=== PATIENT | female | born 1935 | race Caucasian/White ===

== ENCOUNTER 2018-07-06 07:56 | Outpatient (CLI) | payer MEDICARE, OTHER ==
[~2018-07-06] VITALS: Ht 167.6 cm; Wt 79.0 kg
[2018-07-06] VITALS (7 sets, daily range): BP systolic 134–181; BP diastolic 58–76
[~2018-07-06 07:56] MED LIST: ASPI81TA52 PO; LISI-222 PO; MULT-342 PO
[2018-07-06] MEDS ORDERED: regadenoson 0.4mg/5ml syringe IV PRN (08:50)
[2018-07-06] MEDS ORDERED: nitroGLYCERIN 0.4mg SUBLingual tab SL PRN (08:50)
[2018-07-06] MEDS ORDERED: aminophylline 250mg/10ml inj. IV PRN (08:50)
[2018-07-06] MEDS ORDERED: aminophylline inj. 0 ML IV ONE (09:40)
[2018-07-06] MEDS ORDERED: regadenoson 0.4mg/5ml syringe IV ONE (09:40)
== END 2018-07-06 23:59 | disposition home or self-care (01) ==
LOC: RAD 07:56
PROVIDERS: ATTEND Internal Medicine Cardiovascular Disease
DX: Z01.810 Encounter for preprocedural cardiovascular examination (principal); I10 Essential (primary) hypertension; Z95.1 Presence of aortocoronary bypass graft; Z85.828 Personal history of other malignant neoplasm of skin; Z79.82 Long term (current) use of aspirin
CPT/HCPCS: 78452; 93017; A9500; J0280

== ENCOUNTER 2018-10-06 05:49 | Emergency (ER) | payer OTHER ==
[~2018-10-06] VITALS: Ht 167.6 cm; Wt 77.0 kg
[2018-10-06 07:14] LABS: CLARITY,URINE CLEAR (Clear); COLOR,URINE YELLOW (Yellow); GLUCOSE, URINE NEGATIVE (Neg); KETONES,URINE 40 mg/dl (Neg); LEUKOCYTE ESTERASE ,URINE LARGE (Neg); NITRITES, URINE NEGATIVE (Neg); OCCULT BLOOD,URINE MODERATE (Neg); PROTEIN,URINE TRACE mg/dl (Neg); UROBILINOGEN,URINE 0.2 E.U/dL (0.2-1.0)
[2018-10-06 07:15] LABS: UA COLLECTION TYPE CLN CATCH MIDSTREAM
[2018-10-06 07:22] LABS: SQUAMOUS EPITHELIAL CELL,UR MODERATE /LPF (FEW)
[2018-10-06 07:23] LABS: BACTERIA,URINE 2+ /HPF (Neg); RBC,URINE 50-100 /HPF (0-2); WBC,URINE TNTC /HPF (0-4)
[2018-10-06 07:38] LABS: HEMATOCRIT 42.5 % (35.0-45.0); HEMOGLOBIN 14.3 g/dl (12.0-16.0); MEAN CORPUSCULAR HEMOGLOBIN 31.7 PG (27.0-31.0); MEAN CORPUSCULAR HGB CONC 33.7 % (33.0-36.5); MEAN CORPUSCULAR VOLUME 94.3 FL (78-98); PLATELET COUNT 357 X10'3 (140-440); RED BLOOD COUNT 4.51 X10'6 (4.20-5.60); RED CELL DISTRIBUTION WIDTH 13.9 % (11.5-14.5)
[2018-10-06 07:39] LABS: BASOPHILS % (AUTO) 0.6 % (0-1); EOSINOPHILS # (AUTO) 0.1 X10'3 (0-0.9); EOSINOPHILS % (AUTO) 1.2 % (0-6); LYMPHOCYTES # (AUTO) 1.4 X10'3 (1.1-4.8); LYMPHOCYTES % (AUTO) 19.8 % (21-51); MONOCYTES # (AUTO) 0.6 X10'3 (0-0.9); MONOCYTES % (AUTO) 8.4 % (2-12); NEUTROPHILS # (AUTO) 4.9 X10'3 (1.8-7.7)
[2018-10-06 07:49] LABS: ALANINE AMINOTRANSFERASE 17 U/L (12-78); ALBUMIN 3.6 G/DL (3.4-5.0); ALBUMIN/GLOBULIN RATIO 0.9 (1.1-1.5); ALKALINE PHOSPHATASE 64 IU/L (46-116); ANION GAP 11 (8-16); ASPARTATE AMINO TRANSFERASE 29 U/L (10-37); BILIRUBIN,TOTAL 0.5 MG/DL (0.1-1.0); BLOOD UREA NITROGEN 22 MG/DL (7-18); BUN/CREATININE RATIO 27.8 (6.6-38.0); CALCIUM 8.9 MG/DL (8.5-10.1); CHLORIDE 103 MMOL/L (99-107); CREATININE 0.79 MG/DL (0.40-0.90); GLUCOSE 100 MG/DL (70-104); LIPASE 226 U/L (73-393); MAGNESIUM 1.9 MG/DL (1.5-2.4); POTASSIUM 3.5 MMOL/L (3.5-5.1); SODIUM 141 MMOL/L (135-145); TOTAL CARBON DIOXIDE 26.9 MMOL/L (24-32); TOTAL PROTEIN 7.5 G/DL (6.4-8.2); eGFR 70 ML/MIN
[2018-10-06 07:55] LABS: PARTIAL THROMBOPLASTIN TIME 28 SECONDS (22-32); PROTHROMBIN TIME 10.3 SECONDS (9.0-12.0)
[2018-10-06] MEDS ORDERED: meclizine 12.5mg tablet PO ONE (08:05)
[2018-10-06] MEDS ORDERED: MECL12.584 PO (08:15)
[2018-10-06] MEDS ORDERED: CEPH250T PO (08:15)
[2018-10-06 08:29] VITALS: BP 179/98
== END 2018-10-06 08:40 | disposition home or self-care (01) ==
LOC: ER 05:49
DX: R42 Dizziness and giddiness (principal); C55 Malignant neoplasm of uterus, part unspecified; Z88.8 Allergy status to other drugs, medicaments and biological substances; Z79.82 Long term (current) use of aspirin; Z79.899 Other long term (current) drug therapy
CPT/HCPCS: 36415; 70450; 80053; 81001; 83690; 83735; 84484; 85025; 85610; 85730; 87088; 93005; 99284; J8597

== ENCOUNTER 2018-12-12 06:34 | Day surgery (SDC) | payer OTHER ==
[~2018-12-12] VITALS: Ht 167.6 cm; Wt 70.7 kg
[~2018-12-12 06:34] MED LIST changes: +MECL12.584 PO
[2018-12-12 07:03] VITALS: BP 150/90
[2018-12-12] MEDS ORDERED: normal saline 1000ml 1,000 ML IV SCH (07:05)
[2018-12-12] MEDS ORDERED: LOSA25TA96 PO (07:17)
[2018-12-12] MEDS ORDERED: IBUP-1984 PO (07:17)
[2018-12-12] MEDS ORDERED: PROM25TA14 PO (07:17)
[2018-12-12 08:02] LABS: BASOPHILS % (AUTO) 0.3 % (0-1); EOSINOPHILS # (AUTO) 0.1 X10'3 (0-0.9); EOSINOPHILS % (AUTO) 0.8 % (0-6); HEMATOCRIT 37.5 % (35.0-45.0); HEMOGLOBIN 12.7 g/dl (12.0-16.0); LYMPHOCYTES % (AUTO) 8.5 % (21-51); MEAN CORPUSCULAR HEMOGLOBIN 32.1 PG (27.0-31.0); MEAN CORPUSCULAR HGB CONC 33.9 g/dL (33.0-36.5); MEAN CORPUSCULAR VOLUME 94.7 FL (78-98); MEAN PLATELET VOLUME 8.6 FL (7.4-10.4); MONOCYTES # (AUTO) 0.2 X10'3 (0-0.9); MONOCYTES % (AUTO) 1.5 % (2-12); NEUTROPHILS # (AUTO) 10.7 X10'3 (1.8-7.7); NEUTROPHILS % (AUTO) 88.9 % (42-75); PLATELET COUNT 172 X10'3 (140-440); RED BLOOD COUNT 3.96 X10'6 (4.20-5.60)
[2018-12-12 08:13] LABS: ALBUMIN 3.6 G/DL (3.4-5.0); ANION GAP 6 (8-16); BLOOD UREA NITROGEN 23 MG/DL (7-18); BUN/CREATININE RATIO 29.1 (6.6-38.0); CALCIUM 9.2 MG/DL (8.5-10.1); CHLORIDE 101 MMOL/L (99-107); CREATININE 0.79 MG/DL (0.40-0.90); GLUCOSE 107 MG/DL (70-104); POTASSIUM 3.5 MMOL/L (3.5-5.1); SODIUM 137 MMOL/L (135-145); TOTAL CARBON DIOXIDE 30.5 MMOL/L (24-32); eGFR 70 ML/MIN
[2018-12-12 08:50] VITALS: BP 138/69
[2018-12-12 09:05] VITALS: BP 138/69
[2018-12-12 09:10] VITALS: BP 124/73
[2018-12-12 09:20] VITALS: BP 123/82
== END 2018-12-12 09:20 | disposition home or self-care (01) ==
LOC: SSTAY O 06:34
PROVIDERS: ATTEND Radiology Diagnostic Radiology
DX: R22.1 Localized swelling, mass and lump, neck (principal); I10 Essential (primary) hypertension; C54.1 Malignant neoplasm of endometrium; Z90.49 Acquired absence of other specified parts of digestive tract; Z98.890 Other specified postprocedural states; Z79.899 Other long term (current) drug therapy; Z88.6 Allergy status to analgesic agent; Z88.8 Allergy status to other drugs, medicaments and biological substances
CPT/HCPCS: 10005; 36415; 80048; 85025; J7030; 76942

== ENCOUNTER 2019-01-01 04:53 | Inpatient (IN) | payer OTHER ==
[~2019-01-01] VITALS: Ht 167.6 cm; Wt 72.0 kg
[~2019-01-01 04:53] MED LIST changes: +IBUP-1984 PO; -LISI-222 PO; +LOSA25TA96 PO; -MECL12.584 PO; -MULT-342 PO; +PROM25TA14 PO
[2019-01-01 05:52] LABS: PROTHROMBIN TIME 10.5 SECONDS (9.0-12.0)
[2019-01-01 05:53] LABS: ALANINE AMINOTRANSFERASE 20 U/L (12-78); ALBUMIN 3.2 G/DL (3.4-5.0); ALBUMIN/GLOBULIN RATIO 1.1 (1.1-1.5); ALKALINE PHOSPHATASE 59 IU/L (46-116); ANION GAP 8 (8-16); ASPARTATE AMINO TRANSFERASE 24 U/L (10-37); BILIRUBIN,TOTAL 0.9 MG/DL (0.1-1.0); BLOOD UREA NITROGEN 16 MG/DL (7-18); BUN/CREATININE RATIO 22.9 (6.6-38.0); CHLORIDE 104 MMOL/L (99-107); GLUCOSE 116 MG/DL (70-104); PARTIAL THROMBOPLASTIN TIME 24 SECONDS (22-32); POTASSIUM 3.8 MMOL/L (3.5-5.1); SODIUM 139 MMOL/L (135-145); TOTAL CARBON DIOXIDE 26.6 MMOL/L (24-32); TOTAL PROTEIN 6.1 G/DL (6.4-8.2); eGFR 80 ML/MIN
[2019-01-01 06:23] LABS: BASOPHILS % (AUTO) 0.2 % (0-1); EOSINOPHILS % (AUTO) 0.2 % (0-6); HEMATOCRIT 32.9 % (35.0-45.0); HEMOGLOBIN 11.3 g/dl (12.0-16.0); LYMPHOCYTES # (AUTO) 0.6 X10'3 (1.1-4.8); MEAN CORPUSCULAR HEMOGLOBIN 33.4 PG (27.0-31.0); MEAN CORPUSCULAR HGB CONC 34.3 g/dL (33.0-36.5); MEAN CORPUSCULAR VOLUME 97.1 FL (78-98); MEAN PLATELET VOLUME 8.3 FL (7.4-10.4); MONOCYTES # (AUTO) 0.1 X10'3 (0-0.9); MONOCYTES % (AUTO) 1.1 % (2-12); NEUTROPHILS # (AUTO) 6.1 X10'3 (1.8-7.7); NEUTROPHILS % (AUTO) 89.5 % (42-75); PLATELET COUNT 330 X10'3 (140-440); RED BLOOD COUNT 3.39 X10'6 (4.20-5.60); RED CELL DISTRIBUTION WIDTH 17.3 % (11.5-14.5); WHITE BLOOD COUNT 6.8 X10'3 (4.5-11.0)
[2019-01-01] MEDS ORDERED: normal saline 1000ML IV soln IVB ONE (06:50)
[2019-01-01] MEDS ORDERED: acetaminophen 325mg tablet PO PRN (08:45)
[2019-01-01] MEDS ORDERED: mag hydrox/Alum hydrox/simeth 30ml oral suspension PO PRN (08:45)
[2019-01-01] MEDS ORDERED: potassium Cl 40MEQ/NS 500ml 500 ML IV PRN ×2 (08:45)
[2019-01-01] MEDS ORDERED: magnesium 2GM in 50ml NS 50 ML IV PRN (08:45)
[2019-01-01] MEDS ORDERED: ondansetron/PF 4mg/2ml inj IV PRN (08:45)
[2019-01-01] MEDS ORDERED: magnesium hydroxide 30ml (MOM) UD suspension PO PRN (08:45)
[2019-01-01] MEDS ORDERED: magnesium 4gm in 100ml NS 100 ML IV PRN (08:45)
[2019-01-01] MEDS ORDERED: potassium Cl 20 mEq SR tablet PO PRN ×2 (08:45)
[2019-01-01] MEDS: normal saline 1000ml 1,000 ML IV SCH (09:37)
--- NOTE | 2019-01-01 09:55 | NUR ---
received report from SIMÓN Jade in ER. pt arrived to unit in stable condition. placed on tele, call light in reach, bed in low position, locked. oriented to room.
[2019-01-01 10:18] VITALS: BP 140/71
--- NOTE | 2019-01-01 10:25 | NUR ---
scd's placed on pt
[2019-01-01 11:00] VITALS: BP 150/68
[2019-01-01 11:25] LABS: CLARITY,URINE CLEAR (Clear); COLOR,URINE YELLOW (Yellow); GLUCOSE, URINE NEGATIVE (Neg); KETONES,URINE NEGATIVE (Neg); LEUKOCYTE ESTERASE ,URINE SMALL (Neg); NITRITES, URINE NEGATIVE (Neg); OCCULT BLOOD,URINE NEGATIVE (Neg); PH,URINE 5.5 (4.8-8.0); PROTEIN,URINE NEGATIVE (Neg); UROBILINOGEN,URINE 0.2 E.U/dL (0.2-1.0)
[2019-01-01 11:26] LABS: UA COLLECTION TYPE STRAIGHT CATH
[2019-01-01 11:34] LABS: MUCUS STRANDS FEW /LPF (Neg); SQUAMOUS EPITHELIAL CELL,UR MODERATE /LPF (FEW); TRANSITIONAL EPI CELLS,URINE FEW /HPF
[2019-01-01 11:35] LABS: BACTERIA,URINE FEW /HPF (Neg); RBC,URINE 0-2 /HPF (0-2); WBC,URINE 0-4 /HPF (0-4)
[2019-01-01] MEDS ORDERED: iohexol 350MG/ML 100ml bottle IV ONE (14:46)
[2019-01-01 16:05] VITALS: BP 99/64
--- NOTE | 2019-01-01 17:47 | NUR ---
Problems reprioritized. Patient report given, questions answered & plan of care reviewed with SIMÓN Zepeda.
--- NOTE | 2019-01-01 17:47 | NUR ---
Student documentation: I have reviewed and agree with all interventions, assessments performed and documented by Werner.
[2019-01-01 19:00] VITALS: BP 150/78
[2019-01-01] MEDS: heparin, porcine 5000 units/ml vial SQ SCH (19:25)
[2019-01-01 23:00] VITALS: BP 129/69
[2019-01-02] VITALS (8 sets, daily range): BP systolic 83–159; BP diastolic 57–73
[2019-01-02] MEDS: normal saline 1000ml 1,000 ML IV SCH ×2 (01:24→05:26)
--- NOTE | 2019-01-02 03:21 | NUR ---
Manual BP assessed.
[2019-01-02 06:10] LABS: BASOPHILS # (AUTO) 0.1 X10'3 (0-0.2); BASOPHILS % (AUTO) 1.9 % (0-1); EOSINOPHILS % (AUTO) 0.5 % (0-6); HEMATOCRIT 30.4 % (35.0-45.0); HEMOGLOBIN 10.3 g/dl (12.0-16.0); LYMPHOCYTES # (AUTO) 1.4 X10'3 (1.1-4.8); LYMPHOCYTES % (AUTO) 45.3 % (21-51); MEAN CORPUSCULAR HEMOGLOBIN 33.2 PG (27.0-31.0); MEAN CORPUSCULAR VOLUME 97.5 FL (78-98); MEAN PLATELET VOLUME 8.3 FL (7.4-10.4); MONOCYTES # (AUTO) 0.1 X10'3 (0-0.9); MONOCYTES % (AUTO) 2.6 % (2-12); NEUTROPHILS # (AUTO) 1.5 X10'3 (1.8-7.7); NEUTROPHILS % (AUTO) 49.7 % (42-75); PLATELET COUNT 300 X10'3 (140-440); RED BLOOD COUNT 3.12 X10'6 (4.20-5.60); RED CELL DISTRIBUTION WIDTH 17.8 % (11.5-14.5); WHITE BLOOD COUNT 3.1 X10'3 (4.5-11.0)
--- NOTE | 2019-01-02 06:18 | NUR ---
Problems reprioritized. Patient report given, questions answered & plan of care reviewed with SIMÓN Haider.
[2019-01-02 06:26] LABS: ALANINE AMINOTRANSFERASE 18 U/L (12-78); ALBUMIN 2.9 G/DL (3.4-5.0); ALKALINE PHOSPHATASE 54 IU/L (46-116); ANION GAP 6 (8-16); ASPARTATE AMINO TRANSFERASE 18 U/L (10-37); BLOOD UREA NITROGEN 12 MG/DL (7-18); BUN/CREATININE RATIO 20.3 (6.6-38.0); CHLORIDE 106 MMOL/L (99-107); CREATININE 0.59 MG/DL (0.40-0.90); GLUCOSE 97 MG/DL (70-104); MAGNESIUM 1.4 MG/DL (1.5-2.4); POTASSIUM 3.8 MMOL/L (3.5-5.1); SODIUM 141 MMOL/L (135-145); TOTAL CARBON DIOXIDE 28.6 MMOL/L (24-32); TOTAL PROTEIN 5.7 G/DL (6.4-8.2); eGFR > 90 ML/MIN
--- NOTE | 2019-01-02 06:40 | NUR ---
Patient in room PCU 3025. I have received report from Katelyn GR and had the opportunity to ask questions and assume patient care.
[2019-01-02] MEDS: aspirin 81mg tablet.DR PO SCH (07:48)
[2019-01-02] MEDS: heparin, porcine 5000 units/ml vial SQ SCH ×2 (07:49→21:01)
[2019-01-02] MEDS: magnesium Cl slow-release 64mg tablet PO PRN ×2 (07:49→21:01)
[2019-01-02] MEDS: K and/or MAG REPLACEMENT MC SCH (07:50)
--- NOTE | 2019-01-02 11:51 | NUR ---
Paged Dr Pelletier regarding pt discharge post orthostatics with PT PAGER ID: [phone] MESSAGE: Meliza [phone]. RE [facility] Fonsec[facility] [phone]. Spoke with case management that you are not discharging pt today. Would you like me to cancel the discharge order? Thank you.
[2019-01-02] MEDS ORDERED: regadenoson 0.4mg/5ml syringe IV PRN (14:50)
[2019-01-02] MEDS ORDERED: aminophylline 250mg/10ml inj. IV PRN (14:50)
[2019-01-02] MEDS ORDERED: nitroGLYCERIN 0.4mg SUBLingual tab SL PRN (14:50)
[2019-01-02] MEDS ORDERED: metoprolol tartrate 1mg/ml inj IV PRN (14:50)
--- NOTE | 2019-01-02 17:38 | NUR ---
Per Dr Guidry, ordered Tilt Table test for 01/03. Also added order for NPO at midnight.
--- NOTE | 2019-01-02 18:27 | NUR ---
Problems reprioritized. Patient report given, questions answered & plan of care reviewed with Chandrakant GR.
--- NOTE | 2019-01-02 18:32 | NUR ---
Patient in room PCU 3025. I have received report from Meliza and had the opportunity to ask questions and assume patient care.
[2019-01-03] VITALS (19 sets, daily range): BP systolic 76–164; BP diastolic 45–90
--- NOTE | 2019-01-03 01:18 | NUR ---
Orthostatic vitals. From sitting to standing, the SBP went from 144 to 94. Patient was sat down in bed
[2019-01-03] MEDS: normal saline 1000ml 1,000 ML IV SCH ×2 (02:00→19:44)
[2019-01-03 05:08] LABS: BASOPHILS % (AUTO) 1.4 % (0-1); EOSINOPHILS % (AUTO) 0.6 % (0-6); HEMATOCRIT 29.9 % (35.0-45.0); HEMOGLOBIN 10.5 g/dl (12.0-16.0); LYMPHOCYTES # (AUTO) 1.3 X10'3 (1.1-4.8); LYMPHOCYTES % (AUTO) 42.3 % (21-51); MEAN CORPUSCULAR HGB CONC 35.1 g/dL (33.0-36.5); MEAN PLATELET VOLUME 8.2 FL (7.4-10.4); MONOCYTES # (AUTO) 0.1 X10'3 (0-0.9); MONOCYTES % (AUTO) 4.4 % (2-12); NEUTROPHILS # (AUTO) 1.6 X10'3 (1.8-7.7); NEUTROPHILS % (AUTO) 51.3 % (42-75); PLATELET COUNT 282 X10'3 (140-440); RED BLOOD COUNT 3.09 X10'6 (4.20-5.60); RED CELL DISTRIBUTION WIDTH 17.2 % (11.5-14.5)
[2019-01-03 05:23] LABS: ALANINE AMINOTRANSFERASE 21 U/L (12-78); ALBUMIN/GLOBULIN RATIO 1.1 (1.1-1.5); ALKALINE PHOSPHATASE 52 IU/L (46-116); ANION GAP 6 (8-16); ASPARTATE AMINO TRANSFERASE 20 U/L (10-37); BILIRUBIN,TOTAL 0.6 MG/DL (0.1-1.0); BLOOD UREA NITROGEN 12 MG/DL (7-18); BUN/CREATININE RATIO 19.4 (6.6-38.0); CALCIUM 8.7 MG/DL (8.5-10.1); CHLORIDE 107 MMOL/L (99-107); CREATININE 0.62 MG/DL (0.40-0.90); GLUCOSE 90 MG/DL (70-104); MAGNESIUM 1.4 MG/DL (1.5-2.4); POTASSIUM 3.9 MMOL/L (3.5-5.1); SODIUM 142 MMOL/L (135-145); TOTAL CARBON DIOXIDE 29.5 MMOL/L (24-32); TOTAL PROTEIN 5.8 G/DL (6.4-8.2); eGFR > 90 ML/MIN
--- NOTE | 2019-01-03 06:15 | NUR ---
Problems reprioritized. Patient report given, questions answered & plan of care reviewed with Meliza.
--- NOTE | 2019-01-03 06:25 | NUR ---
Patient in room PCU 3029K. I have received report from Chandrakant GR and had the opportunity to ask questions and assume patient care.
[2019-01-03 06:26] LABS: TOTAL CELLS COUNTED 100
[2019-01-03 06:27] LABS: ANISOCYTOSIS 1+; PLATELET ESTIMATE NORMAL
[2019-01-03 06:28] LABS: LARGE PLATELETS FEW; TOXIC GRANULATION 1+
[2019-01-03] MEDS: magnesium Cl slow-release 64mg tablet PO PRN (08:03)
[2019-01-03] MEDS: aspirin 81mg tablet.DR PO SCH (08:03)
[2019-01-03] MEDS: heparin, porcine 5000 units/ml vial SQ SCH ×2 (08:04→19:46)
[2019-01-03] MEDS: K and/or MAG REPLACEMENT MC SCH (08:09)
[2019-01-03] MEDS: fludrocortisone acetate 0.1mg tablet PO SCH (10:41)
--- NOTE | 2019-01-03 18:31 | NUR ---
Problems reprioritized. Patient report given, questions answered & plan of care reviewed with Pauline GR.
--- NOTE | 2019-01-03 18:47 | NUR ---
Patient in room PCU 3025. I have received report from Meliza GR and had the opportunity to ask questions and assume patient care.
[2019-01-04 02:00] VITALS: BP 143/79
[2019-01-04 04:54] LABS: BASOPHILS # (AUTO) 0.1 X10'3 (0-0.2); BASOPHILS % (AUTO) 1.7 % (0-1); EOSINOPHILS % (AUTO) 0.8 % (0-6); HEMATOCRIT 29.1 % (35.0-45.0); LYMPHOCYTES # (AUTO) 1.5 X10'3 (1.1-4.8); LYMPHOCYTES % (AUTO) 46.7 % (21-51); MEAN CORPUSCULAR HEMOGLOBIN 33.3 PG (27.0-31.0); MEAN CORPUSCULAR HGB CONC 34.2 g/dL (33.0-36.5); MEAN CORPUSCULAR VOLUME 97.2 FL (78-98); MEAN PLATELET VOLUME 7.7 FL (7.4-10.4); MONOCYTES # (AUTO) 0.2 X10'3 (0-0.9); MONOCYTES % (AUTO) 6.6 % (2-12); NEUTROPHILS # (AUTO) 1.4 X10'3 (1.8-7.7); NEUTROPHILS % (AUTO) 44.2 % (42-75); PLATELET COUNT 291 X10'3 (140-440); RED BLOOD COUNT 2.99 X10'6 (4.20-5.60); RED CELL DISTRIBUTION WIDTH 16.8 % (11.5-14.5); WHITE BLOOD COUNT 3.2 X10'3 (4.5-11.0)
[2019-01-04 05:10] LABS: ALANINE AMINOTRANSFERASE 17 U/L (12-78); ALBUMIN 2.8 G/DL (3.4-5.0); ALKALINE PHOSPHATASE 54 IU/L (46-116); ANION GAP 7 (8-16); ASPARTATE AMINO TRANSFERASE 16 U/L (10-37); BILIRUBIN,TOTAL 0.4 MG/DL (0.1-1.0); BLOOD UREA NITROGEN 10 MG/DL (7-18); BUN/CREATININE RATIO 16.4 (6.6-38.0); CALCIUM 8.9 MG/DL (8.5-10.1); CHLORIDE 108 MMOL/L (99-107); CREATININE 0.61 MG/DL (0.40-0.90); GLUCOSE 91 MG/DL (70-104); MAGNESIUM 1.5 MG/DL (1.5-2.4); POTASSIUM 3.8 MMOL/L (3.5-5.1); SODIUM 143 MMOL/L (135-145); TOTAL CARBON DIOXIDE 28.1 MMOL/L (24-32); TOTAL PROTEIN 5.6 G/DL (6.4-8.2); eGFR > 90 ML/MIN
--- NOTE | 2019-01-04 06:27 | NUR ---
Problems reprioritized. Patient report given, questions answered & plan of care reviewed with Payal GR.
--- NOTE | 2019-01-04 06:47 | NUR ---
Patient in room PCU 3025. I have received report from SIMÓN Carpenter and had the opportunity to ask questions and assume patient care.
[2019-01-04 07:00] VITALS: BP 138/69
[2019-01-04 08:00] VITALS: BP_SYST 124; BP_SYST 139; BP_SYST 99; BP_DIAS 55; BP_DIAS 59; BP_DIAS 72
[2019-01-04] MEDS: K and/or MAG REPLACEMENT MC SCH (08:00)
[2019-01-04] MEDS: fludrocortisone acetate 0.1mg tablet PO SCH (08:57)
[2019-01-04] MEDS: aspirin 81mg tablet.DR PO SCH (08:58)
[2019-01-04] MEDS: heparin, porcine 5000 units/ml vial SQ SCH (08:59)
[2019-01-04 11:00] VITALS: BP 124/55
[2019-01-04] MEDS ORDERED: FLO0.1T PO (11:03)
--- NOTE | 2019-01-04 14:51 | NUR ---
Discharge information, including medications, S&S worsening condition, F/U appts reviewed with pt. Pt had opportunity to ask questions. Tele box removed & returned to telephone station repairer. IV removed, cannula intact. ID band removed. All pt belongings gathered up and sent with pt. New prescription called in to [facility] on [address] Pt wheeled down to lobby to meet private vehicle.
== END 2019-01-04 14:50 | disposition home health service (06) | DRG 312 ==
LOC: ER 04:54 → PCU 3S 10:08
PROVIDERS: ADMIT Internal Medicine; ATTEND Internal Medicine
PROC: B32T1ZZ Computerized Tomography (CT Scan) of Left Pulmonary Artery using Low Osmolar Contrast (ICD-10-PCS; principal; 2019-01-01)
PROC: B3201ZZ Computerized Tomography (CT Scan) of Thoracic Aorta using Low Osmolar Contrast (ICD-10-PCS; 2019-01-01)
PROC: B32S1ZZ Computerized Tomography (CT Scan) of Right Pulmonary Artery using Low Osmolar Contrast (ICD-10-PCS; 2019-01-01)
PROC: 4A02XFZ Measurement of Cardiac Rhythm, External Approach (ICD-10-PCS; 2019-01-04)
PROC: 4A03XB1 Measurement of Arterial Pressure, Peripheral, External Approach (ICD-10-PCS; 2019-01-04)
DX: I95.1 Orthostatic hypotension (principal); I25.10 Atherosclerotic heart disease of native coronary artery without angina pectoris; E78.5 Hyperlipidemia, unspecified; C55 Malignant neoplasm of uterus, part unspecified; F45.8 Other somatoform disorders; I10 Essential (primary) hypertension; R29.6 Repeated falls; T45.1X5A Adverse effect of antineoplastic and immunosuppressive drugs, initial encounter; W18.39XA Other fall on same level, initial encounter; M19.90 Unspecified osteoarthritis, unspecified site; Z66 Do not resuscitate; Z90.49 Acquired absence of other specified parts of digestive tract; Z95.1 Presence of aortocoronary bypass graft; Z88.8 Allergy status to other drugs, medicaments and biological substances; Z79.899 Other long term (current) drug therapy; Z79.82 Long term (current) use of aspirin; Y93.89 Activity, other specified; Y92.89 Other specified places as the place of occurrence of the external cause; Y99.8 Other external cause status
CPT/HCPCS: 36415; 71045; 71275; 73564; 74174; 80053; 81001; 83735; 84443; 84484; 85025; 85610; 85730; 87070; 87088; 93005; 93306; 93660; 93880; 96360; 97116; 97162; 97530; 99285; G0378; J1644; J7030; Q9967

== ENCOUNTER 2019-01-12 09:44 | Emergency (ER) | payer MEDICARE, OTHER ==
[~2019-01-12] VITALS: Ht 167.6 cm; Wt 74.0 kg
[~2019-01-12 09:44] MED LIST changes: +FLO0.1T PO; -IBUP-1984 PO; -LOSA25TA96 PO; -PROM25TA14 PO
[2019-01-12 10:21] LABS: BASOPHILS # (AUTO) 0.1 X10'3 (0-0.2); BASOPHILS % (AUTO) 2.7 % (0-1); EOSINOPHILS % (AUTO) 0.1 % (0-6); HEMATOCRIT 35.8 % (35.0-45.0); LYMPHOCYTES # (AUTO) 1.3 X10'3 (1.1-4.8); LYMPHOCYTES % (AUTO) 57.6 % (21-51); MEAN CORPUSCULAR HEMOGLOBIN 32.9 PG (27.0-31.0); MEAN CORPUSCULAR HGB CONC 33.5 g/dL (33.0-36.5); MEAN CORPUSCULAR VOLUME 98.2 FL (78-98); MEAN PLATELET VOLUME 7.2 FL (7.4-10.4); MONOCYTES # (AUTO) 0.5 X10'3 (0-0.9); MONOCYTES % (AUTO) 21.3 % (2-12); NEUTROPHILS # (AUTO) 0.4 X10'3 (1.8-7.7); NEUTROPHILS % (AUTO) 18.3 % (42-75); PLATELET COUNT 391 X10'3 (140-440); RED BLOOD COUNT 3.64 X10'6 (4.20-5.60); RED CELL DISTRIBUTION WIDTH 18.4 % (11.5-14.5); WHITE BLOOD COUNT 2.3 X10'3 (4.5-11.0)
[2019-01-12 10:36] LABS: PARTIAL THROMBOPLASTIN TIME 27 SECONDS (22-32)
[2019-01-12 10:37] LABS: ALANINE AMINOTRANSFERASE 20 U/L (12-78); ALBUMIN 3.3 G/DL (3.4-5.0); ALBUMIN/GLOBULIN RATIO 1.1 (1.1-1.5); ALKALINE PHOSPHATASE 92 IU/L (46-116); ANION GAP 7 (8-16); ASPARTATE AMINO TRANSFERASE 18 U/L (10-37); BILIRUBIN,TOTAL 0.3 MG/DL (0.1-1.0); BLOOD UREA NITROGEN 10 MG/DL (7-18); BUN/CREATININE RATIO 14.1 (6.6-38.0); CALCIUM 9.2 MG/DL (8.5-10.1); CHLORIDE 107 MMOL/L (99-107); CREATININE 0.71 MG/DL (0.40-0.90); GLUCOSE 98 MG/DL (70-104); POTASSIUM 3.8 MMOL/L (3.5-5.1); SODIUM 142 MMOL/L (135-145); TOTAL CARBON DIOXIDE 27.7 MMOL/L (24-32); TOTAL PROTEIN 6.4 G/DL (6.4-8.2); eGFR 79 ML/MIN
[2019-01-12 11:16] LABS: ANISOCYTOSIS 2+; PLATELET ESTIMATE NORMAL; TOTAL CELLS COUNTED 100
[2019-01-12] MEDS ORDERED: normal saline 1000ML IV soln IVB ONE (11:40)
[2019-01-12 11:44] VITALS: BP 161/82
[2019-01-12 13:19] LABS: CLARITY,URINE CLEAR (Clear); COLOR,URINE YELLOW (Yellow); GLUCOSE, URINE NEGATIVE (Neg); KETONES,URINE NEGATIVE (Neg); LEUKOCYTE ESTERASE ,URINE TRACE (Neg); NITRITES, URINE NEGATIVE (Neg); OCCULT BLOOD,URINE NEGATIVE (Neg); PROTEIN,URINE NEGATIVE (Neg); UROBILINOGEN,URINE 0.2 E.U/dL (0.2-1.0)
[2019-01-12 13:24] LABS: UA COLLECTION TYPE CLN CATCH MIDSTREAM
[2019-01-12 13:30] LABS: RBC,URINE NONE SEEN /HPF (0-2); WBC,URINE 0-4 /HPF (0-4)
[2019-01-12 13:31] LABS: BACTERIA,URINE NONE SEEN /HPF (Neg); SQUAMOUS EPITHELIAL CELL,UR FEW /LPF (FEW)
== END 2019-01-12 13:16 | disposition home or self-care (01) ==
LOC: ER 09:45
DX: R42 Dizziness and giddiness (principal); R53.1 Weakness; I10 Essential (primary) hypertension; Z90.49 Acquired absence of other specified parts of digestive tract; Z95.1 Presence of aortocoronary bypass graft; Z79.82 Long term (current) use of aspirin; Z79.899 Other long term (current) drug therapy
CPT/HCPCS: 36415; 71045; 80053; 81001; 84484; 85025; 85610; 85730; 87088; 93005; 99284; J7030

== ENCOUNTER 2019-04-28 08:43 | Outpatient (CLI) | payer OTHER ==
[2019-04-28 09:29] LABS: ALANINE AMINOTRANSFERASE 23 U/L (12-78); ALBUMIN 3.4 G/DL (3.4-5.0); ALBUMIN/GLOBULIN RATIO 1.1 (1.1-1.5); ALKALINE PHOSPHATASE 65 IU/L (46-116); ANION GAP 6 (8-16); ASPARTATE AMINO TRANSFERASE 23 U/L (10-37); BILIRUBIN,TOTAL 0.4 MG/DL (0.1-1.0); BLOOD UREA NITROGEN 4 MG/DL (7-18); BUN/CREATININE RATIO 5.6 (6.6-38.0); CALCIUM 8.5 MG/DL (8.5-10.1); CHLORIDE 107 MMOL/L (99-107); CREATININE 0.71 MG/DL (0.40-0.90); GLUCOSE 96 MG/DL (70-104); POTASSIUM 3.7 MMOL/L (3.5-5.1); SODIUM 144 MMOL/L (135-145); TOTAL CARBON DIOXIDE 30.8 MMOL/L (24-32); TOTAL PROTEIN 6.6 G/DL (6.4-8.2); eGFR 79 ML/MIN
[2019-04-28] MEDS ORDERED: iohexol 300mg/ml 100ml inj. ONE (09:40)
== END 2019-04-28 23:59 | disposition home or self-care (01) ==
LOC: 64 CT 08:43
PROVIDERS: ATTEND Internal Medicine
DX: D07.0 Carcinoma in situ of endometrium (principal); K76.0 Fatty (change of) liver, not elsewhere classified; I10 Essential (primary) hypertension; Z90.49 Acquired absence of other specified parts of digestive tract
CPT/HCPCS: 36415; 71260; 74177; 80053; Q9967

== ENCOUNTER 2019-11-22 09:01 | Emergency (ER) | payer OTHER ==
[~2019-11-22] VITALS: Ht 167.6 cm; Wt 91.0 kg
[2019-11-22 10:12] LABS: BASOPHILS % (AUTO) 0.8 % (0-1); HEMATOCRIT 45.5 % (35.0-45.0); HEMOGLOBIN 15.4 g/dl (12.0-16.0); LYMPHOCYTES # (AUTO) 1.5 X10'3 (1.1-4.8); LYMPHOCYTES % (AUTO) 32.7 % (21-51); MEAN CORPUSCULAR HGB CONC 33.9 g/dL (33.0-36.5); MEAN CORPUSCULAR VOLUME 94.3 FL (78-98); MEAN PLATELET VOLUME 7.2 FL (7.4-10.4); MONOCYTES # (AUTO) 0.4 X10'3 (0-0.9); MONOCYTES % (AUTO) 9.5 % (2-12); NEUTROPHILS # (AUTO) 2.5 X10'3 (1.8-7.7); PLATELET COUNT 272 X10'3 (140-440); RED BLOOD COUNT 4.82 X10'6 (4.20-5.60); RED CELL DISTRIBUTION WIDTH 13.1 % (11.5-14.5); WHITE BLOOD COUNT 4.5 X10'3 (4.5-11.0)
[2019-11-22 10:29] LABS: ALANINE AMINOTRANSFERASE 27 U/L (12-78); ALBUMIN 3.8 G/DL (3.4-5.0); ALBUMIN/GLOBULIN RATIO 1.1 (1.1-1.5); ALKALINE PHOSPHATASE 67 IU/L (46-116); ANION GAP 4 (8-16); ASPARTATE AMINO TRANSFERASE 25 U/L (10-37); BILIRUBIN,TOTAL 0.7 MG/DL (0.1-1.0); BLOOD UREA NITROGEN 10 MG/DL (7-18); BUN/CREATININE RATIO 11.5 (6.6-38.0); CHLORIDE 106 MMOL/L (99-107); CREATININE 0.87 MG/DL (0.40-0.90); GLUCOSE 109 MG/DL (70-104); MAGNESIUM 1.8 MG/DL (1.5-2.4); POTASSIUM 3.9 MMOL/L (3.5-5.1); SODIUM 141 MMOL/L (135-145); TOTAL CARBON DIOXIDE 30.9 MMOL/L (24-32); TOTAL PROTEIN 7.2 G/DL (6.4-8.2); eGFR 62 ML/MIN
[2019-11-22 11:12] LABS: COLOR,URINE YELLOW (Yellow); GLUCOSE, URINE NEGATIVE (Neg); KETONES,URINE NEGATIVE (Neg); LEUKOCYTE ESTERASE ,URINE SMALL (Neg); NITRITES, URINE NEGATIVE (Neg); OCCULT BLOOD,URINE TRACE-INTACT (Neg); PH,URINE 6.5 (4.8-8.0); PROTEIN,URINE NEGATIVE (Neg); UROBILINOGEN,URINE 0.2 E.U/dL (0.2-1.0)
[2019-11-22 11:16] LABS: CLARITY,URINE SLIGHTLY CLOUDY (Clear); UA COLLECTION TYPE CLN CATCH MIDSTREAM
[2019-11-22] MEDS ORDERED: metoclopramide 5 mg/ml inj IV ONE (11:25)
[2019-11-22 11:26] LABS: BACTERIA,URINE FEW /HPF (Neg); RBC,URINE 0-2 /HPF (0-2); SQUAMOUS EPITHELIAL CELL,UR FEW /LPF (FEW); WBC,URINE 0-4 /HPF (0-4)
[2019-11-22] MEDS ORDERED: MECL-159 PO (12:44)
[2019-11-22 14:37] VITALS: BP 158/75
== END 2019-11-22 14:49 | disposition home or self-care (01) ==
LOC: ER 09:02
DX: R42 Dizziness and giddiness (principal); C55 Malignant neoplasm of uterus, part unspecified; I10 Essential (primary) hypertension; Z90.49 Acquired absence of other specified parts of digestive tract; Z95.1 Presence of aortocoronary bypass graft; Z88.8 Allergy status to other drugs, medicaments and biological substances; Z79.82 Long term (current) use of aspirin; Z79.899 Other long term (current) drug therapy
CPT/HCPCS: 36415; 70450; 71045; 80053; 81001; 83735; 84484; 85025; 87088; 93005; 96374; 99285; J2765

== ENCOUNTER 2020-03-12 10:09 | Outpatient (CLI) | payer OTHER ==
[~2020-03-12 10:09] MED LIST changes: +MECL-159 PO
[2020-03-12 11:06] LABS: ALANINE AMINOTRANSFERASE 28 U/L (12-78); ALBUMIN 3.5 G/DL (3.4-5.0); ALBUMIN/GLOBULIN RATIO 1.1 (1.1-1.5); ALKALINE PHOSPHATASE 68 IU/L (46-116); ANION GAP 8 (8-16); ASPARTATE AMINO TRANSFERASE 25 U/L (10-37); BILIRUBIN,TOTAL 0.6 MG/DL (0.1-1.0); BLOOD UREA NITROGEN 12 MG/DL (7-18); BUN/CREATININE RATIO 11.3 (6.6-38.0); CALCIUM 8.6 MG/DL (8.5-10.1); CHLORIDE 107 MMOL/L (99-107); CREATININE 1.06 MG/DL (0.40-0.90); GLUCOSE 140 MG/DL (70-104); POTASSIUM 3.8 MMOL/L (3.5-5.1); SODIUM 144 MMOL/L (135-145); TOTAL CARBON DIOXIDE 29.2 MMOL/L (24-32); TOTAL PROTEIN 6.8 G/DL (6.4-8.2); eGFR 49 ML/MIN
== END 2020-03-12 23:59 | disposition home or self-care (01) ==
LOC: LAB 10:09
PROVIDERS: ATTEND Internal Medicine
DX: D07.0 Carcinoma in situ of endometrium (principal); Z95.1 Presence of aortocoronary bypass graft
CPT/HCPCS: 36415; 80053; 86304

== ENCOUNTER 2020-03-21 07:20 | Day surgery (SDC) | payer OTHER ==
[~2020-03-21] VITALS: Ht 167.6 cm; Wt 94.7 kg
[2020-03-21] MEDS ORDERED: sodium bicarbonate (8.4%) inj. 150 ML in dextrose 5%-water 1,000 ML IV ONE (07:50)
[2020-03-21] MEDS ORDERED: acetylcysteine 200 MG/ml 4ml vial PO PRN (07:50)
[2020-03-21 08:32] VITALS: BP 148/71
[2020-03-21] MEDS ORDERED: iohexol 300mg/ml 100ml inj. ONE ×2 (09:59→11:01)
== END 2020-03-21 16:10 | disposition home or self-care (01) ==
LOC: SSTAY O 07:20 → EDSTATUS 08:00 → SSTAY O 16:10
PROVIDERS: ATTEND Internal Medicine
DX: C54.1 Malignant neoplasm of endometrium (principal); E04.1 Nontoxic single thyroid nodule; Z88.8 Allergy status to other drugs, medicaments and biological substances; Z95.1 Presence of aortocoronary bypass graft; K44.9 Diaphragmatic hernia without obstruction or gangrene; K57.30 Diverticulosis of large intestine without perforation or abscess without bleeding; I89.8 Other specified noninfective disorders of lymphatic vessels and lymph nodes
CPT/HCPCS: 71260; 74177; Q9967

== ENCOUNTER 2020-07-30 09:03 | Outpatient (CLI) | payer OTHER ==
[2020-07-30] MEDS ORDERED: iohexol 300mg/ml 100ml inj. ONE (09:30)
== END 2020-07-30 23:59 | disposition home or self-care (01) ==
LOC: 64 CT 09:03
PROVIDERS: ATTEND Internal Medicine
DX: D07.0 Carcinoma in situ of endometrium (principal)
CPT/HCPCS: 71260; 74177; Q9967

== ENCOUNTER 2020-11-08 10:08 | Outpatient (CLI) | payer OTHER ==
[~2020-11-08 10:08] MED LIST changes: -ASPI81TA52 PO; +CLOP75TA34 PO; +CYCL50CA3 PO; -FLO0.1T PO; +LIDOcaine 1% (10mg/ml)w/preservative injection 20ml MDV ONE; -MECL-159 PO; +METO25TA6 PO; +clopidogrel 300mg tablet ONE; +diphenhydrAMINE 50 mg/ml inj ONE; +fentaNYL/PF 50MCG/1 ML 2ML syringe ONE; +heparin 1,000unit/ml 10ml vial 10 ML ONE; +heparin 25,000 UNIT/250ml bag 250 ML IV ONE; +iohexol 350 MG/ML 50ML vial IV ONE; +iohexol 350MG/ML 100ml bottle IV ONE; +midazolam 2 mg/2 ml injection ONE; +nitroGLYCERIN-Tridil 50MG/D5W 250 ML IV ONE
[2020-11-08] MEDS ORDERED: iohexol 300mg/ml 100ml inj. ONE (10:37)
== END 2020-11-08 23:59 | disposition home or self-care (01) ==
LOC: 64 CT 10:08
PROVIDERS: ATTEND Internal Medicine
DX: K76.0 Fatty (change of) liver, not elsewhere classified (principal); K57.30 Diverticulosis of large intestine without perforation or abscess without bleeding; K40.20 Bilateral inguinal hernia, without obstruction or gangrene, not specified as recurrent; K42.9 Umbilical hernia without obstruction or gangrene; M47.816 Spondylosis without myelopathy or radiculopathy, lumbar region; R91.1 Solitary pulmonary nodule; M48.54XA Collapsed vertebra, not elsewhere classified, thoracic region, initial encounter for fracture; I70.0 Atherosclerosis of aorta; J98.4 Other disorders of lung; M48.14 Ankylosing hyperostosis [Forestier], thoracic region
CPT/HCPCS: 71260; 74177; Q9967; J1200; J1644; J2001; J2250; J3010; J3490

== ENCOUNTER 2021-02-05 15:06 | Outpatient (CLI) | payer OTHER ==
[~2021-02-05 15:06] MED LIST changes: -LIDOcaine 1% (10mg/ml)w/preservative injection 20ml MDV ONE; +LOP25T PO; -METO25TA6 PO; -clopidogrel 300mg tablet ONE; -diphenhydrAMINE 50 mg/ml inj ONE; -fentaNYL/PF 50MCG/1 ML 2ML syringe ONE; -heparin 1,000unit/ml 10ml vial 10 ML ONE; -heparin 25,000 UNIT/250ml bag 250 ML IV ONE; -iohexol 350 MG/ML 50ML vial IV ONE; -iohexol 350MG/ML 100ml bottle IV ONE; -midazolam 2 mg/2 ml injection ONE; -nitroGLYCERIN-Tridil 50MG/D5W 250 ML IV ONE
== END 2021-02-05 23:59 | disposition home or self-care (01) ==
LOC: 64 CT 15:06
PROVIDERS: ATTEND Internal Medicine
DX: J98.11 Atelectasis (principal); J98.4 Other disorders of lung; K57.30 Diverticulosis of large intestine without perforation or abscess without bleeding; K40.90 Unilateral inguinal hernia, without obstruction or gangrene, not specified as recurrent; K42.9 Umbilical hernia without obstruction or gangrene; I82.0 Budd-Chiari syndrome; D07.0 Carcinoma in situ of endometrium
CPT/HCPCS: 71250; 74176

== ENCOUNTER 2021-07-28 08:26 | Outpatient (CLI) | payer OTHER | END 2021-07-28 23:59 | disposition home or self-care (01) | LOC: 64 CT 08:26 | PROVIDERS: ATTEND Internal Medicine | DX: R91.1 Solitary pulmonary nodule (principal); K57.30 Diverticulosis of large intestine without perforation or abscess without bleeding; I70.0 Atherosclerosis of aorta; M47.816 Spondylosis without myelopathy or radiculopathy, lumbar region; M43.8X4 Other specified deforming dorsopathies, thoracic region; I25.10 Atherosclerotic heart disease of native coronary artery without angina pectoris; K44.9 Diaphragmatic hernia without obstruction or gangrene; K42.9 Umbilical hernia without obstruction or gangrene | CPT/HCPCS: 71250; 74176 ==

== ENCOUNTER → 2021-12-08 | Outpatient (CLI) | payer OTHER | END | disposition home or self-care (01) | LOC: RAD 08:36 | PROVIDERS: ATTEND Internal Medicine | DX: N85.2 Hypertrophy of uterus (principal); D07.0 Carcinoma in situ of endometrium; J98.4 Other disorders of lung; I25.10 Atherosclerotic heart disease of native coronary artery without angina pectoris; K22.89 Other specified disease of esophagus; I70.0 Atherosclerosis of aorta; K57.30 Diverticulosis of large intestine without perforation or abscess without bleeding; I70.8 Atherosclerosis of other arteries; M16.0 Bilateral primary osteoarthritis of hip; M47.819 Spondylosis without myelopathy or radiculopathy, site unspecified; M48.54XA Collapsed vertebra, not elsewhere classified, thoracic region, initial encounter for fracture; K42.9 Umbilical hernia without obstruction or gangrene; K40.20 Bilateral inguinal hernia, without obstruction or gangrene, not specified as recurrent; Z90.49 Acquired absence of other specified parts of digestive tract; Z98.890 Other specified postprocedural states | CPT/HCPCS: 71250; 74176 ==

== ENCOUNTER 2022-03-24 09:30 | Outpatient (CLI) | payer OTHER | END 2022-03-24 23:59 | disposition home or self-care (01) | LOC: 64 CT 09:30 | PROVIDERS: ATTEND Student in an Organized Health Care Education/Training Program | DX: C54.1 Malignant neoplasm of endometrium (principal); N32.89 Other specified disorders of bladder; K42.9 Umbilical hernia without obstruction or gangrene; M43.8X4 Other specified deforming dorsopathies, thoracic region; I70.0 Atherosclerosis of aorta; Z85.42 Personal history of malignant neoplasm of other parts of uterus; Z90.49 Acquired absence of other specified parts of digestive tract; Z90.710 Acquired absence of both cervix and uterus | CPT/HCPCS: 71250; 74176 ==

== ENCOUNTER 2022-04-18 15:08 | Emergency (ER) | payer OTHER ==
[~2022-04-18] VITALS: Ht 167.6 cm; Wt 90.9 kg
[2022-04-18 15:16] VITALS: BP 145/92
== END 2022-04-18 18:32 | disposition home or self-care (01) ==
LOC: ER 15:10
DX: M54.59 Other low back pain (principal); I10 Essential (primary) hypertension; Z98.890 Other specified postprocedural states; Z79.899 Other long term (current) drug therapy
CPT/HCPCS: 72110; 99283